=== PATIENT | female | born 1985 | race Caucasian/White ===

== ENCOUNTER → 2023-07-22 08:52 | Outpatient (REF) | payer OTHER, SELFPAY | LOC: HWRAD 08:52 | PROVIDERS: ATTENDING PHYSICIAN Obstetrics & Gynecology Gynecology; FAMILY PHYSICIAN Physician Assistant Medical | DX: E04.9 Nontoxic goiter, unspecified (principal) | CPT/HCPCS: 76536 ==

== ENCOUNTER → 2023-08-21 10:24 | Outpatient (REF) | payer OTHER, SELFPAY ==
[2023-08-21 10:39] VITALS: BP 115/77; BP_SYST 77
== END ==
LOC: RADI 10:24
PROVIDERS: ATTENDING PHYSICIAN Otolaryngology; FAMILY PHYSICIAN Physician Assistant Medical
DX: E04.1 Nontoxic single thyroid nodule (principal)
CPT/HCPCS: 88173; 10005